=== PATIENT | male | born 1950 | race African-American/Black ===

== ENCOUNTER 2022-05-23 17:54 | Emergency (ER) | payer OTHER, MEDICARE ==
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
[2022-05-24 01:59] VITALS: BP 147/82
== END 2022-05-24 02:00 | disposition home or self-care (01) ==
LOC: ED 17:54
DX: M79.18 Myalgia, other site (principal); V89.2XXA Person injured in unspecified motor-vehicle accident, traffic, initial encounter; Y93.89 Activity, other specified; Y92.89 Other specified places as the place of occurrence of the external cause; Y99.8 Other external cause status
CPT/HCPCS: 71046; 99283